=== PATIENT | female | born 1945 | race African-American/Black ===

== ENCOUNTER 2022-10-26 11:17 | Outpatient (REF) | payer OTHER, SELFPAY ==
[2022-10-26 14:07] LABS: Hematocrit 37.2 % (37.0-47.0); Hemoglobin 12.4 g/dl (12.0-16.0); Mean Corpuscular HGB Conc 33.3 g/dl (31.0-35.0); Mean Platelet Volume 10.3 fL (9.4-12.3); Platelet Count 262 X10*3/uL (160-400); Red Blood Count 4.43 X10*6/uL (4.20-5.50); Red Cell Distribution Width 14.6 % (11.0-16.0); White Blood Count 4.1 X10*3/uL (4.8-10.8)
[2022-10-26 14:37] LABS: Alanine Aminotransferase 19 U/L (0-31); Albumin Level 4.3 g/dL (3.5-5.0); Alkaline Phosphatase 107 U/L (39-117); Anion Gap 12 (12-20); Aspartate Amino Transferase 21 U/L (5-31); Bilirubin Total 0.4 mg/dL (0.0-1.0); Blood Urea Nitrogen 14 mg/dL (9-16); Calcium 9.7 mg/dL (8.4-10.2); Carbon Dioxide 29 mmol/L (22-29); Chloride 106 mmol/L (96-108); Cholesterol 206 mg/dL; Estimated Glomerular Filt Rate 52; Glucose Fasting 94 mg/dL (60-99); HDL Cholesterol 47 mg/dL; LDL Cholesterol Calculated 141 mg/dl; Potassium 4.4 mmol/L (3.3-5.1); Sodium 143 mmol/L (135-145); Total Protein 7.6 g/dL (6.5-8.0); Triglycerides 91 mg/dL
[2022-10-26 14:53] LABS: TSH reflex Free T4 0.76 uIU/mL (0.32-4.0)
== END 2022-10-26 11:18 | disposition home or self-care (01) ==
LOC: HO.WFDLDS 11:17
PROVIDERS: Visit Provider Nurse Practitioner Family
DX: Z00.00 Encounter for general adult medical examination without abnormal findings (principal); Z71.89 Other specified counseling
CPT/HCPCS: 36415; 80053; 80061; 84443; 85027

== ENCOUNTER → 2022-12-22 10:14 | Outpatient (BNVA) | payer OTHER, SELFPAY | PROVIDERS: PCP Nurse Practitioner Family; Visit Provider Physician Assistant | DX: Z12.11 Encounter for screening for malignant neoplasm of colon (principal) | CPT/HCPCS: 99202 ==

== ENCOUNTER 2023-02-25 11:07 | Day surgery (SDC) | payer OTHER, SELFPAY ==
[2023-02-23 16:02] VITALS: BMI 25.4
[2023-02-25] MEDS: Lactated Ringers 1,000 ML 100 ML IVCONT (11:40)
--- NOTE | 2023-02-25 11:46 | MHC.SHP ---
Pre-Procedural Eval Section A Date of Service: 02/25/23 Section B Chief Complaint: screening Relevant Family History (Specify if Yes): No Relevant Social History: None Present Medications: see Short Stay Collaborative assessment Medical History: Significant History (Cataract) History of Previous Operations: No relevant previous surgery Allergies: Allergies Allergy/AdvReac Type Severity Reaction Status Date / Time No Known Allergies Allergy Verified 12/22/22 10:18 Review of Systems Sugical H&P ROS: Negative: Constitution, Cardiovascular, Respiratory, Neurological, Psychiatric, Hem-Onc, Allergic/Immunologic, Gastrointestinal, Genitourinary, Musculoskeletal, Integumentary, Endocrine and Eyes/Ears/Nose/Throat Exam Surgical H&P Exam: Normal: HEENT, Normal: Heart, Normal: Lungs, Normal: Extremities, Normal: Abdomen, Normal: Skin and Normal: Neurological Plan Diagnosis/Plan: Unchanged I have reviewed the history and physical and performed a pertinent physical examination on my patient. No changes have occurred unless specified. Time Spent With Patient Time: Total time managing care of this patient today ____ minutes.
--- NOTE | 2023-02-25 11:56 | HO.ANESPROP2 ---
[facility] Active Problems Active Problems: All Active Problems (Updated 12/22/22 @ 11:57 by Yin Black PA-C) Postmenopausal (Acute) Osteoporosis screening (Acute) Colon cancer screening (Acute) Physical exam, annual (Acute) Laboratory tests ordered as part of a complete physical exam (CPE) (Acute) Past Medical History Medical History (Updated 12/22/22 @ 11:57 by Yin Black PA-C) Cataract Family History Family history of problems with anesthesia: No Surgical History History of Problems with Anesthesia: No Social History Social History (Updated 12/22/22 @ 10:47 by Yin Black PA-C) Household Members: Family Housing: House Patient Tobacco Use Status: Never used Tobacco e-Cigarette/Vaping Use: Never Used Use of substances other than those prescribed or required for medical reasons: No Are you DNR?: No Advance Directives: No Advance Directives Information Provided: Yes Meds Allergies Allergy/AdvReac Type Severity Reaction Status Date / Time No Known Allergies Allergy Verified 12/22/22 10:18 Active Medications: Current Medications Lactated Ringer's (Lr) 1,000 mls @ 100 mls/hr IVCONT .Q10H MONYT Last Admin: 02/25/23 11:40 Dose: 100 mls/hr Exam Exam Date and Time: February 25, 2023 1156 Height,Weight and Vital Signs: Height 5 ft 4 in Weight 67.132 kg Airway Mallampati Class: II TM Dist: >3cm Neck ROM: Full Assessment and Plan Assessment Anesthesia Assessment: Anesthesia Plan Discussed and Chart Reviewed Final Anesthetic Review Family History of Problems with Anesthesia: No History of Problems with Anesthesia: No NPO: Yes ASA Class: I Final Preanesthetic Review: No Changes in Pt Med Stat, Meds/Allgs Chart Reviewed, Consent Obtained/Reviewed and Anes Risks/Benef Reviewed Patient Risk: Low Procedure Risk: Low Anesthetic Plan Anesthetic Plan: MAC: Disposition: Standard PACU
--- NOTE | 2023-02-25 12:07 | W.PM.OPN ---
Operative Note Operative Note Date of Service: 02/25/23 Narrative: Operative Information Procedure Description: Colonoscopy Indication: screening Anesthesia: MAC COLONOSCOPY Instrument: Olympus variable stiffness ADULT scope 190L Colonoscopy Monitoring: Vital signs and clinical assessment, continuous EKG monitoring, Pulse oximetry, Carbon Dioxide monitoring and blood pressure monitoring were done throughout the procedure. Colon withdrawal time was 14 minutes. Procedure: The patient was placed in the left lateral decubitis position and pre-procedure medications were administered. After a digital rectal examination of the ano-rectum, the video colonoscope was inserted into the rectum and advanced through the colon to the cecum/TI. The colonoscope was slowly withdrawn in a retrograde panoramic fashion and the colon mucosa was carefully examined including a retroflexed view of the rectum. Findings and interventions are described below. Procedure Difficulty: moderate, redundant colon with lopping Findings: Terminal Ileum-not intubated Cecum: 4-6 mm sessile polyp removed with cold snare Ascending Colon: normal Transverse Colon -normal Descending Colon:normal Sigmoid Colon: normal Rectum: Retroflexion with small internal hemorrhoids, grade I Anorectum - normal Colon preparation: Blanca Bowel Preparation Scale Right colon; 2 Transverse colon: 2 Left colon; 3 (0 = Unprepared colon segment with mucosa not seen due to solid stool that cannot be cleared. 1 = Portion of mucosa of the colon segment seen, but other areas of the colon segment not well seen due to staining, residual stool and/or opaque liquid. 2 = Minor amount of residual staining, small fragments of stool and/or opaque liquid, but mucosa of colon segment seen well. 3 = Entire mucosa of colon segment seen well with no residual staining, small fragments of stool or opaque liquid) Impression and Post Procedure Diagnosis: polyp internal hemorrhoids Plan: High fiber diet leaflet Avoid straining at stool, epsom salts and sitz bath, anusol supps or cream Can consider Repeat Colonoscopy in 5-7 years if health allows and the polyp is adenomatous otherwise this would be her last screening colonoscopy Above findings were reviewed with the patient and relevant handouts were provided if indicated.
[2023-02-25 12:46] VITALS: BP 115/52; PULSE 86; RESP 20; TEMP 36.3; O2SAT 98
[2023-02-25 13:01] VITALS: BP 120/60; PULSE 78; RESP 18; O2SAT 98
[2023-02-25 13:16] VITALS: BP 126/64; PULSE 91; RESP 18; TEMP 36.3; O2SAT 98
== END 2023-02-25 13:51 | disposition home or self-care (01) ==
PROVIDERS: PCP Hospitalist; Visit Provider Internal Medicine Gastroenterology
PROC: 0DJD8ZZ Inspection of Lower Intestinal Tract, Via Natural or Artificial Opening Endoscopic (ICD-10-PCS; CPT 45378; principal; 2023-02-25 12:30)
DX: Z12.11 Encounter for screening for malignant neoplasm of colon (principal); K63.5 Polyp of colon; K64.0 First degree hemorrhoids
CPT/HCPCS: G0121; 88305

== ENCOUNTER → 2023-02-25 11:07 | Outpatient (BNV) | payer OTHER, SELFPAY | PROVIDERS: PCP Hospitalist; Visit Provider Internal Medicine Gastroenterology | DX: Z12.11 Encounter for screening for malignant neoplasm of colon (principal); K63.5 Polyp of colon | CPT/HCPCS: 45385 ==

== ENCOUNTER 2023-03-10 13:22 | Outpatient (AMB) | payer OTHER, SELFPAY ==
--- NOTE | 2023-03-10 13:31 | MHC.OFFVIS ---
Intake Vital Signs 03/10/23 13:34 Height 5 ft 4 in Weight 140 lb BMI 24.0 BP 146/76 H Blood Pressure Location Lt brachial Position Sitting Pulse 82 Intake Visit Reasons: S/P Filion screening; Dr. Saini Intake Note: Patient follow up for Colonoscopy results. Patient denies any GI issues. Principal Associate Required: No Accompanied by: Self / Same As Patient Allergies No Known Allergies Allergy (Verified 03/10/23 13:32) HPI HPI Comments History of Present Illness Details A 77 y/o female f/u after colonoscopy with Dr. Saini. She tolerated well-No GI or general complaints- No N/V/ D PFSH Medical History (Updated 03/10/23 @ 13:46 by Yin Black PA-C) Cataract Surgical History Hx of colonoscopy Social History Household Members: Family Housing: House Patient Tobacco Use Status: Never used Tobacco e-Cigarette/Vaping Use: Never Used Review of Systems Const All systems reviewed & are unremarkable except as noted in HPI and below Physical Exam Vital Signs: Last Vital Signs Pulse 82 03/10/23 13:34 BP 146/76 H 03/10/23 13:34 BMI result Body Mass Index 24.0 Const General: cooperative, healthy appearing and comfortable Orientation/consciousness: patient oriented x3 Limitations: no limitations Neuro General: patient oriented x3 Extrem General: Yes full ROM Psych Appearance: grossly normal and well kempt Mental Status: mental status grossly normal Speech and movement: Normal speech and movement present and Clear speech present Affect: normal affect Attitude: cooperative Thought process: Normal thought process present Thought content: Normal thought content present Results Reviewed Results Reviewed: mpression and Post Procedure Diagnosis: polyp internal hemorrhoids Plan: High fiber diet leaflet Avoid straining at stool, epsom salts and sitz bath, anusol supps or cream Can consider Repeat Colonoscopy in 5-7 years if health allows and the polyp is adenomatous otherwise this would be her last screening colonoscopy Above findings were reviewed with the patient and relevant handouts were provided if indicated. Name:?Charlotte Shepherd Age/Sex: 77/F Attending: Leobardo Saini MD : 1945 Submitted by: Leobardo Saini MD Copies to: Isidro Mercer MD MR #: [id number] ? Status: [facility] [place] Collected: 02/25/23 Location: [facility] Received: 02/25/23 Diagnosis Colon, cecum, polyp, biopsy:? Colonic mucosa with a prominent lymphoid aggregate; negative for a hyperplastic or neoplastic process. Assessment & Plan Assessment & Plan (1) Hemorrhoids: Code(s): K64.9 - Unspecified hemorrhoids Plan High fiber diet leaflet Avoid straining at stool, epsom salts and sitz bath, anusol supps or cream Can consider Repeat Colonoscopy in 5-7 years if health allows and the polyp is adenomatous otherwise this would be her last screening colonoscopy Medications: New methylcellulose (laxative) (Citrucel Sugar Free oral powder) 2 grams PO DAILY PRN 479 grams 2RF constipation Patient Instructions: High fiber diet - citrucel Avoid straining at stool, epsom salts and sitz bath, anusol supps or cream Can consider Repeat Colonoscopy in 5-7 years if health allows and the polyp is adenomatous otherwise this would be her last screening colonoscopy Reviewed pathology- no adenoma Coding Level of Care Code Est Pt Level 3 (64569) Diagnoses Hemorrhoids K64.9 Time Spent (min) 25
[2023-03-10 13:34] VITALS: BP 146/76; PULSE 82; BMI 24.0
== END 2023-03-10 15:02 | disposition home or self-care (01) ==
PROVIDERS: PCP Hospitalist; Visit Provider Physician Assistant
DX: K64.9 Unspecified hemorrhoids (principal)
CPT/HCPCS: 99213

== ENCOUNTER → 2023-03-10 13:22 | Outpatient (BNVA) | payer OTHER, SELFPAY | PROVIDERS: PCP Hospitalist; Visit Provider Physician Assistant | DX: K64.9 Unspecified hemorrhoids (principal) | CPT/HCPCS: 99212 ==

== ENCOUNTER 2023-03-19 12:38 | Outpatient (AMB) | payer OTHER, SELFPAY ==
[2023-03-19 12:46] VITALS: BP 130/80; PULSE 78; O2SAT 98; BMI 24.9
--- NOTE | 2023-03-19 12:46 | MHC.PC.OV ---
Vital Signs 03/19/23 12:46 Height 5 ft 4 in Weight 145 lb 5 oz BMI 24.9 BP 130/80 Blood Pressure Location Lt brachial Position Sitting Pulse 78 Pulse Source Pulse Oximeter Pulse Oximetry (%) 98 Intake Visit Reasons: health maintenance Intake Note: pt is here for f/u health maintenance Accompanied by: Self / Same As Patient Allergies No Known Allergies Allergy (Verified 03/19/23 13:02) Tobacco use date assessed: 10/26/22 Fall risk assessment: No Falls in past year Last assessed Fall Risk: 03/19/23 Dental Screening Dental Screen Date: 03/19/23 Did you have a dental visit in the last 12 months?: Yes Did you have a dental problem in the last 6 months where you did not have access to dental care?: No Was dental information given to patient?: Patient has dentist HPI HPI Comments History of Present Illness Details 77-year-old female presents for health maintenance. She had colonoscopy done on 02/25/2023. Polyp and internal hemorrhoids were found. Per GI, can consider Repeat Colonoscopy in 5-7 years if health allows and the polyp is adenomatous otherwise this would be her last screening colonoscopy. No acute symptoms. 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 Minor Joy, Alla Armenta, Bran Kaplan and colleagues, with an educational jose from [employer]. Review of Systems Const Details: Const Denies chills, Denies fatigue, Denies fever(s), Denies headache(s) and Denies weakness ENT Denies dizziness and Denies headache(s) Card Denies chest pain, Denies lightheadedness, Denies dyspnea and Denies other (Palpitations) Resp Denies cough, Denies dyspnea, Denies wheezing and Denies other ( shortness of breath) GI Denies abdominal pain, Denies melena, Denies hematochezia, Denies change in bowel habits, Denies dyspepsia and Denies nausea Denies hematuria and Denies dysuria Musc Denies abnormal gait, Denies myalgias, Denies arthralgias, Denies numbness and Denies tingling Skin/Breast Denies rash, Denies unusual bruising and Denies wounds Neuro Denies abnormal gait, Denies dizziness, Denies headache(s), Denies memory loss, Denies numbness, Denies Sensory deficit (Neuro), Denies tingling and Denies weakness Psych Denies anxiety and Denies depression Endo Denies fatigue Aller/Immun Denies wheezing Physical exam (Primary Care) Vital Signs: Last Vital Signs Pulse 78 03/19/23 12:46 BP 130/80 03/19/23 12:46 Pulse Ox 98 03/19/23 12:46 BMI result Body Mass Index 24.9 Tobacco/Smoking Status: Tobacco use Status Tobacco use date assessed 10/26/22 03/19/23 12:48 Patient Tobacco Use Status Never used Tobacco 03/19/23 12:48 e-Cigarette/Vaping Use Never Used 03/19/23 12:48 Thrive Assessment: Date of Thrive Assessment Date Thrive assessed 10/26/22 03/19/23 12:48 Const Other: General: no acute distress and well developed Nutritional Appearance: well nourished Orientation/consciousness: patient oriented x3 HENMT Head: Yes normocephalic and Yes atraumatic Eyes General: appearance normal, both eyes and all related structures Pupils: Equal, round and reactive pupils present EOM: EOMs intact bilaterally Resp Effort & Inspection: normal respiratory effort Auscultation: clear to auscultation bilaterally Cardio Rate: regular rate Rhythm: regular rhythm Heart sounds: S1 normal heart sound present, S2 normal heart sound present, no gallops, no murmurs and no rubs GI Palpation (GI): No Abdominal aortic bruit present, Soft to palpation, nontender, No hepatosplenomegaly present and No Rebound tenderness present Auscultation: normal bowel sounds General: Yes no CVA tenderness Back/Spine/Pelvis Back: no CVA tenderness Cervical Spine: cervical ROM normal and No Cervical spine tenderness Thoracic/Lumbar Spine: thoraco-lumbar ROM normal, No pain with thoraco-lumbar ROM, No thoracic spinal tenderness and No lumbar spinal tenderness Extrem General: Yes normal to inspection, No edema and No calf tenderness Skin General: warm and dry. Normal skin color. Normal skin turgor Lesions: no lesions Rashes: no rashes Trauma: no lacerations or abrasions Wounds: no wounds Nails: normal Neuro General: patient oriented x3, gait normal and no focal neuro deficit Cranial nerves: Yes Equal, round and reactive pupils present Cognition (Neuro): normal cognition Gait exam (Neuro): Normal gait present Motor exam (neuro): 5/5 motor strength present throughout Sensory Exam: No Sensory deficit (Neuro) Psych Appearance: grossly normal Affect: normal affect Attitude: cooperative Thought process: Normal thought process present Assessment and Plan Assessment & Plan (1) Hypercholesteremia: Code(s): E78.00 - Pure hypercholesterolemia, unspecified Plan: Current blood work reviewed with the patient Total cholesterol and LDL were slightly elevated Advised to limit foods high in saturated fat and avoid foods high trans fat Routine exercise encouraged Follow-up with GI as needed Return with concerns or symptoms Advised to schedule her next physical for a year from today Verbalized understanding and agreed with treatment plan. Coding Level of Care Code Est Pt Level 3 (14453) Diagnoses Hypercholesteremia E78.00
== END 2023-03-19 13:30 | disposition home or self-care (01) ==
PROVIDERS: PCP Nurse Practitioner Family; Visit Provider Nurse Practitioner Family
DX: E78.00 Pure hypercholesterolemia, unspecified (principal)
CPT/HCPCS: 99213

== ENCOUNTER 2023-10-29 09:55 | Outpatient (AMB) | payer OTHER, SELFPAY ==
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
[2023-10-29 10:04] VITALS: BP 126/78; PULSE 77; RESP 14; TEMP 36.6; O2SAT 98; BMI 24.8
== END 2023-10-29 11:26 | disposition home or self-care (01) ==
PROVIDERS: PCP Nurse Practitioner Family; Visit Provider Nurse Practitioner Family
DX: Z00.00 Encounter for general adult medical examination without abnormal findings (principal); M79.652 Pain in left thigh; M81.8 Other osteoporosis without current pathological fracture
CPT/HCPCS: 99397

== ENCOUNTER 2023-10-29 10:45 | Outpatient (REF) | payer OTHER, SELFPAY ==
[2023-10-29 14:10] LABS: Appearance Urine Clear; Color Urine Yellow; Glucose Urine UA Negative (Negative); Leukocyte Esterase Urine Negative (Negative); Nitrite Urine Negative (Negative); PH 6.5 (5.0-9.0); Specific Gravity - Urine 1.015 (1.005-1.025); Urine Blood Negative (Negative); Urine Ketones Negative (Negative); Urine Protein Trace mg/dL (Neg-Trace)
[2023-10-29 14:15] LABS: Basophils Percent Auto 0.8 % (0-2); Eosinophils Percent Auto 0.4 % (0-4); Hematocrit 38.7 % (37.0-47.0); Hemoglobin 12.9 g/dl (12.0-16.0); Lymphocytes Absolute Auto 1.2 X10*3/uL (1.2-4.9); Lymphocytes Percent Auto 49.8 % (20-40); MANUAL DIFF FLAG SCAN; Mean Corpuscular HGB Conc 33.3 g/dl (31.0-35.0); Mean Corpuscular Hemoglobin 28.2 pg (27.0-33.0); Mean Corpuscular Volume 84.5 fL (80.0-98.0); Monocytes Absolute Auto 0.4 X10*3/uL (0.1-1.2); Monocytes Percent Auto 16.7 % (2-11); Neutrophils Absolute Auto 0.8 x10*3/uL (2.0-8.3); Neutrophils Percent Auto 32.3 % (45-73); Platelet Count 225 X10*3/uL (160-400); Red Blood Count 4.58 X10*6/uL (4.20-5.50); Red Cell Distribution Width 14.7 % (11.0-16.0); SCAN SMEAR FLAG 1
[2023-10-29 14:41] LABS: SLIDE REVIEW VERIFIED; White Blood Count 2.5 X10*3/uL (4.8-10.8)
[2023-10-29 14:57] LABS: Alanine Aminotransferase 24 U/L (0-31); Albumin Level 4.3 g/dL (3.5-5.0); Alkaline Phosphatase 78 U/L (39-117); Anion Gap 13 (12-20); Aspartate Amino Transferase 30 U/L (5-31); Bilirubin Total 0.3 mg/dL (0.0-1.0); Blood Urea Nitrogen 10 mg/dL (9-16); Calcium 9.3 mg/dL (8.4-10.2); Carbon Dioxide 26 mmol/L (22-29); Chloride 104 mmol/L (96-108); Cholesterol 204 mg/dL (<200); Estimated Glomerular Filt Rate 42; Glucose Fasting 96 mg/dL (60-99); HDL Cholesterol 48 mg/dL (>40); LDL Cholesterol Calculated 132 mg/dL (<100); Sodium 139 mmol/L (135-145); Total Protein 7.9 g/dL (6.5-8.0); Triglycerides 121 mg/dL (<150)
[2023-10-29 15:16] LABS: TSH reflex Free T4 0.53 uIU/mL (0.32-4.0)
== END 2023-10-29 10:46 | disposition home or self-care (01) ==
LOC: HO.WFDLDS 10:45
PROVIDERS: Visit Provider Nurse Practitioner Family
DX: Z00.00 Encounter for general adult medical examination without abnormal findings (principal); Z20.2 Contact with and (suspected) exposure to infections with a predominantly sexual mode of transmission
CPT/HCPCS: 36415; 80053; 80061; 81003; 84443; 85025

== ENCOUNTER 2023-11-12 17:23 | Outpatient (AMB) | payer OTHER, SELFPAY ==
--- NOTE | 2023-11-12 17:18 | A.OFFPC_ITS ---
Intake Visit Reasons: labs review Allergies No Known Allergies Allergy (Verified 11/12/23 17:19) Tobacco use date assessed: 10/29/23 Dental Screening Dental Screen Date: 10/29/23 HPI HPI Comments History of Present Illness Details 78-year-old female presents for teleheal th visit for review of recent blood work She admits to taking gabapentin as prescribed without adverse reactions She notes that she has an appointment to start physical therapy in 11/19/2023 She offers no complaints and denies acute symptoms at this [facility] Medical History Cataract Surgical History Hx of colonoscopy Social History Household Members: Family Housing: House Patient Tobacco Use Status: Never used Tobacco e-Cigarette/Vaping Use: Never Used service: No 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 Minor Joy, Alla Armenta, Bran Kaplan and colleagues, with an educational jose from [employer]. Review of Systems Const Details: Const Denies chills, Denies fatigue, Denies fever(s), Denies headache(s) and Denies weakness ENT Denies dizziness and Denies headache(s) Card Denies chest pain, Denies lightheadedness, Denies dyspnea and Denies other (Palpitations) Resp Denies cough, Denies dyspnea, Denies wheezing and Denies other ( shortness of breath) GI Denies abdominal pain, Denies melena, Denies hematochezia, Denies change in bowel habits, Denies dyspepsia and Denies nausea Denies hematuria and Denies dysuria Musc Denies abnormal gait, Denies myalgias, Denies arthralgias, Denies numbness and Denies tingling Skin/Breast Denies rash, Denies unusual bruising and Denies wounds Neuro Denies abnormal gait, Denies dizziness, Denies headache(s), Denies memory loss, Denies numbness, Denies Sensory deficit (Neuro), Denies tingling and Denies weakness Psych Denies anxiety, Denies depression, Denies memory loss Endo Denies cold intolerance, Denies fatigue, Denies heat intolerance, Denies polydipsia and Denies polyuria Aller/Immun Denies wheezing Physical exam (Primary Care) Tobacco/Smoking Status: Tobacco use Status Tobacco use date assessed 10/29/23 11/12/23 17:20 Patient Tobacco Use Status Never used Tobacco 11/12/23 17:20 e-Cigarette/Vaping Use Never Used 11/12/23 17:20 Thrive Assessment: Date of Thrive Assessment Date Thrive assessed 10/29/23 11/12/23 17:20 Const Other: Telehealth visit. No physical exam Telehealth Telehealth Location of provider rendering services: practice address Location of patient: address on file Patient Identification confirmed using: Name, : Yes Telehealth method: voice only Patient verbally consented to treatment: Yes Patient verbally consented to billing insurance company: Yes Patient informed of any privacy concerns related to visit: Yes Assessment and Plan Assessment & Plan (1) Hypercholesteremia: Code(s): E78.00 - Pure hypercholesterolemia, unspecified Plan: Recent lab results reviewed with the patient Total cholesterol LDL is slightly elevated, 204 and 132 respectively Advised to limit foods high in saturated fat and avoid foods high in trans fat Routine exercise encouraged Will recheck lipid panel level. Advised to fast for 10-12 hours, may drink water only, and get blood work done before next visit Follow-up in 3 months Return sooner with symptoms or concerns Verbalized understanding and agreed with treatment plan (2) Leukocytopenia, unspecified: Code(s): D72.819 - Decreased white blood cell count, unspecified Plan: Recent white count is low, 2.5; previous white count was slightly low, 4.1; equivocal Will repeat CBC before next visit Follow-up as planned Verbalized understanding and agreed with the plan (3) Chronic kidney disease: Code(s): N18.9 - Chronic kidney disease, unspecified Plan: Recent GFR is low, 42; BUN and creatinine are normal Low GFR is likely related to age Will continue to monitor kidney function and symptoms. Will check urine microalbumin/creatinine ratio Adequate hydration encouraged Follow-up in 3 months Verbalized understanding and agreed with treatment plan Orders: Orders Lipid Panel 3 Months E78.00 - Pure hypercholesterolemia, unspecified Complete Blood Count no Diff 3 Months D72.819 - Decreased white blood cell count, unspecified Basic Metabolic Panel 3 Months N18.9 - Chronic kidney disease, unspecified Microalbumin, Random (w Creat) 3 Months N18.9 - Chronic kidney disease, unspecified Coding Level of Care Code Tele Est Pt Level 2 (29568) Diagnoses Hypercholesteremia E78.00 Leukocytopenia, unspecified D72.819 Chronic kidney disease N18.9 Time Spent (min) 15
== END 2023-11-15 16:29 | disposition home or self-care (01) ==
LOC: HO.HMGFM 17:23
PROVIDERS: PCP Nurse Practitioner Family; Visit Provider Nurse Practitioner Family
DX: E78.00 Pure hypercholesterolemia, unspecified (principal); D72.819 Decreased white blood cell count, unspecified; N18.9 Chronic kidney disease, unspecified
CPT/HCPCS: 99212

== ENCOUNTER 2023-11-19 09:05 | Outpatient (REF) | payer OTHER, SELFPAY ==
--- NOTE | ~2023-11-19 | MM_ITS ---
EXAMINATION: BONE DENSITOMETRY CLINICAL INDICATION: Other osteoporosis without current pathological fracture. COMPARISON: This is the patient's baseline examination. TECHNIQUE: Using a Verafin DXA System (software version: 13.1) manufactured by [employer], dual-energy x-ray absorptiometry was performed of the lumbar spine and left hip. The images are of good technical quality. Summary results are attached. FINDINGS: LEFT FEMUR, NECK: BMD 0.703 g/cm2, Z-score -1.2, T-score -2.4, osteopenia. LEFT FEMUR, TOTAL: BMD 0.811 g/cm2, Z-score -0.6, T-score -1.6, osteopenia. AP SPINE L1-L3 (excluding L4): The data of L1-L4 has been changed to exclude the L4 vertebral body, because degenerative sclerosis at this level may cause overestimation of lumbar spine density. BMD 0.861 g/cm2, Z-score -1.5, T-score -2.6, osteoporosis. IDENTIFIED RISK FACTORS: Early menopause, secondary osteoporosis. HISTORY OF FRACTURE: None listed. MEDICATIONS: Calcium supplements or multivitamin, vitamin D. MM/XR DEXA axial skeleton IMPRESSION: 1. DIAGNOSIS: Osteoporosis based on the lowest T-score value of -2.6 in the lumbar spine applying World Health Organization criteria. 2. 10-YEAR FRACTURE RISK PREDICTION, FRAX: According to the guidelines, FRAX calculation should only be performed on patients in the osteopenia bone density category. Therefore, FRAX was not performed on this patient. 3. Treatment Recommendations: NOF guidelines recommend consideration for treatment in postmenopausal women and men age 50 and older presenting with the following: -A hip or vertebral (clinical or morphometric) fracture. -T-score less than or equal to -2.5 at the femoral neck or spine after appropriate evaluation to exclude secondary causes. -Low bone mass at the hip or spine and a 10-year fracture probability by FRAX of greater than or equal to 3% for hip fracture or greater than or equal to 20% for major osteoporotic fracture based on the [place] adapted WHO algorithm. 4. Other Recommendations: All treatment decisions require clinical judgment and consideration of individual patient factors, including patient preferences, comorbidities, previous drug use, risk factors not captured in the FRAX model (e.g. frailty, falls, vitamin D deficiency, increased bone turnover, interval significant decline in bone density) and possible under or overestimation of fracture risk by FRAX. Additional medical evaluation for secondary cause of low bone mineral density may be appropriate. FUTURE SCAN RECOMMENDATION: People with diagnosed cases of osteoporosis or at high risk for fracture should have regular bone mineral density tests. For patients eligible for Medicare, routine testing is allowed once every 2 years. The testing frequency can be increased to one year for patients who have rapidly progressing disease, those who are receiving or discontinuing medical therapy to restore bone mass, or have additional risk factors.
== END 2023-11-19 09:06 | disposition home or self-care (01) ==
LOC: HO.MAMMO 09:05
PROVIDERS: Visit Provider Nurse Practitioner Family
DX: Z13.820 Encounter for screening for osteoporosis (principal); M81.8 Other osteoporosis without current pathological fracture; Z78.0 Asymptomatic menopausal state
CPT/HCPCS: 77080

== ENCOUNTER 2024-02-18 11:02 | Outpatient (REF) | payer OTHER, SELFPAY ==
[2024-02-18 14:21] LABS: Hematocrit 37.3 % (37.0-47.0); Hemoglobin 12.4 g/dl (12.0-16.0); Mean Corpuscular HGB Conc 33.2 g/dl (31.0-35.0); Mean Corpuscular Hemoglobin 28.2 pg (27.0-33.0); Mean Platelet Volume 10.1 fL (9.4-12.3); Platelet Count 234 X10*3/uL (160-400); Red Blood Count 4.39 X10*6/uL (4.20-5.50); Red Cell Distribution Width 14.3 % (11.0-16.0); White Blood Count 4.3 X10*3/uL (4.8-10.8)
[2024-02-18 14:32] LABS: Anion Gap 13 (12-20); Blood Urea Nitrogen 17 mg/dL (9-16); Calcium 10.2 mg/dL (8.4-10.2); Carbon Dioxide 26 mmol/L (22-29); Chloride 106 mmol/L (96-108); Cholesterol 188 mg/dL (<200); Estimated Glomerular Filt Rate 45; Glucose Random 104 mg/dL (60-115); HDL Cholesterol 44 mg/dL (>40); LDL Cholesterol Calculated 129 mg/dL (<100); Potassium 4.3 mmol/L (3.3-5.1); Sodium 141 mmol/L (135-145); Triglycerides 79 mg/dL (<150)
[2024-02-18 14:38] LABS: Creatinine Urine 110.86 mg/dL; Microalbum/Creatinine Ratio Ur 8.1 ug/mg cr (<30)
== END 2024-02-18 11:03 | disposition home or self-care (01) ==
LOC: HO.WFDLDS 11:02
PROVIDERS: Visit Provider Nurse Practitioner Family
DX: N18.9 Chronic kidney disease, unspecified (principal); E78.00 Pure hypercholesterolemia, unspecified; D72.819 Decreased white blood cell count, unspecified
CPT/HCPCS: 36415; 80048; 80061; 82043; 82570; 85027

== ENCOUNTER 2024-02-25 11:00 | Outpatient (AMB) | payer OTHER, SELFPAY ==
[2024-02-25 11:12] VITALS: BP 140/74; PULSE 71; RESP 14; TEMP 36.5; O2SAT 99; BMI 24.8
--- NOTE | 2024-02-25 11:12 | MHC.PC.OV ---
Vital Signs 02/25/24 11:12 02/25/24 11:51 Height 5 ft 4 in Weight 144 lb 6 oz BMI 24.8 BP 140/74 H 120/68 Blood Pressure Location Rt brachial Rt brachial Position Sitting Sitting Respiration 14 Pulse 71 Pulse Source Pulse Oximeter Temp 97.7 F Temp Source Temporal Artery Scan Pulse Oximetry (%) 99 Oxygen Delivery Method Room Air Intake Visit Reasons: hypercholesterolemia, CKD, leukocytopenia Claims Manager Required: No Accompanied by: Self / Same As Patient Allergies No Known Allergies Allergy (Verified 02/25/24 11:18) Tobacco use date assessed: 10/29/23 Fall risk assessment: No Falls in past year Last assessed Fall Risk: 02/25/24 Dental Screening Dental Screen Date: 10/29/23 HPI HPI Comments History of Present Illness Details 78-year-old female presents for hypercholesterolemia, CKD, and leukopenia follow-up She reports occasional postnasal drip and requests a script for this No acute symptoms at this time PFSH Medical History Cataract Surgical History Hx of colonoscopy Social History Household Members: Family Housing: House Patient Tobacco Use Status: Never used Tobacco e-Cigarette/Vaping Use: Never Used service: No 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 Minor Joy, Alla Armenta, Bran Kaplan and colleagues, with an educational jose from [employer]. Review of Systems Const Details: Const Denies chills, Denies fatigue, Denies fever(s), Denies headache(s) and Denies weakness ENT Denies dizziness and Denies headache(s) Card Denies chest pain, Denies lightheadedness, Denies dyspnea and Denies other (Palpitations) Resp Denies cough, Denies dyspnea, Denies wheezing and Denies other ( shortness of breath) GI Denies abdominal pain, Denies melena, Denies hematochezia, Denies change in bowel habits, Denies dyspepsia and Denies nausea Denies hematuria and Denies dysuria Musc Denies abnormal gait, Denies myalgias, Denies arthralgias, Denies numbness and Denies tingling Skin/Breast Denies rash, Denies unusual bruising and Denies wounds Neuro Denies abnormal gait, Denies dizziness, Denies headache(s), Denies memory loss, Denies numbness, Denies Sensory deficit (Neuro), Denies tingling and Denies weakness Psych Denies anxiety, Denies depression, Denies memory loss Endo Denies cold intolerance, Denies fatigue, Denies heat intolerance, Denies polydipsia and Denies polyuria Aller/Immun Denies wheezing Physical exam (Primary Care) Vital Signs: Last Vital Signs Temp 97.7 F 02/25/24 11:12 Pulse 71 02/25/24 11:12 Resp 14 02/25/24 11:12 BP 140/74 H 02/25/24 11:12 Pulse Ox 99 02/25/24 11:12 Oxygen Delivery Method Room Air 02/25/24 11:12 BMI result Body Mass Index 24.8 Tobacco/Smoking Status: Tobacco use Status Tobacco use date assessed 10/29/23 02/25/24 11:20 Patient Tobacco Use Status Never used Tobacco 02/25/24 11:20 e-Cigarette/Vaping Use Never Used 02/25/24 11:20 Thrive Assessment: Date of Thrive Assessment Date Thrive assessed 10/29/23 02/25/24 11:20 Const Other: General: no acute distress and well developed Nutritional Appearance: well nourished Orientation/consciousness: patient oriented x3 HENWI Head: Yes normocephalic and Yes atraumatic Eyes General: appearance normal, both eyes and all related structures Pupils: Equal, round and reactive pupils present EOM: EOMs intact bilaterally Resp Effort & Inspection: normal respiratory effort Auscultation: clear to auscultation bilaterally Cardio Rate: regular rate Rhythm: regular rhythm Heart sounds: S1 normal heart sound present, S2 normal heart sound present, no gallops, no murmurs and no rubs GI Palpation (GI): No Abdominal aortic bruit present, Soft to palpation, nontender, No hepatosplenomegaly present and No Rebound tenderness present Auscultation: normal bowel sounds General: Yes no CVA tenderness Back/Spine/Pelvis Back: no CVA tenderness Cervical Spine: cervical ROM normal and No Cervical spine tenderness Thoracic/Lumbar Spine: thoraco-lumbar ROM normal, No pain with thoraco-lumbar ROM, No thoracic spinal tenderness and No lumbar spinal tenderness Extrem General: Yes normal to inspection, No edema and No calf tenderness Skin General: warm and dry. Normal skin color. Normal skin turgor Neuro General: patient oriented x3, gait normal and no focal neuro deficit Cranial nerves: Yes Equal, round and reactive pupils present Cognition (Neuro): normal cognition Gait exam (Neuro): Normal gait present Sensory Exam: No Sensory deficit (Neuro) Psych Appearance: grossly normal Affect: normal affect Attitude: cooperative Thought process: Normal thought process present Assessment and Plan Assessment & Plan (1) Hypercholesteremia: Code(s): E78.00 - Pure hypercholesterolemia, unspecified Plan: Recent triglycerides, total cholesterol LDL, and HDL levels are normal, 79, 188, 129, and 44 respectively Advised to limit foods high in saturated fat and avoid foods high in trans fat Routine exercise encouraged Will monitor lipid panel periodically Encouraged to schedule her next physical exam for 10/2024 Return sooner with symptoms or concerns Verbalized understanding and agreed with treatment plan (2) Leukocytopenia, unspecified: Code(s): D72.819 - Decreased white blood cell count, unspecified Plan: Recent WBC count is 4.3, significant improvement from previous level of 2.5; equivocal Will monitor routinely or based on symptoms Follow-up with symptoms or concerns Verbalized understanding and agreed with the plan (3) Chronic kidney disease: Code(s): N18.9 - Chronic kidney disease, unspecified Plan: Recent BUN and creatinine levels are unremarkable, urine microalbumin/creatinine ratio is normal, 8.1 GFR is low, 45, likely due to age Adequate hydration encouraged Will continue to monitor routinely or based on symptoms Follow-up with symptoms or concerns Verbalized understanding and agreed with the treatment plan (4) Osteoporosis: Code(s): M81.0 - Age-related osteoporosis without current pathological fracture Plan: Recent DEXA scan results on 11/19/2023 revealed osteoporosis based on the lowest T-score value of -2.6 in the lumbar spine Calcium carbonate-vitamin D3 600 mg-20 mcg daily ordered. Advised to take as prescribed. Instructed on the risks, benefits, and potential adverse reactions of the medications Referred to physical therapy for weight-bearing exercises Follow-up with symptoms or concerns Verbalized understanding and agreed with the plan (5) Seasonal allergies: Code(s): J30.2 - Other seasonal allergic rhinitis Plan: Occasional postnasal drip Zyrtec 10 mg daily ordered. Advised to take as prescribed. Instructed on the risks, benefits, and potential adverse reactions of the medication Follow-up with symptoms or concerns Verbalized understanding and agreed with treatment plan Orders: Orders PT Evaluation and Treatment Today M81.0 - Age-related osteoporosis without current pathological fracture Medications: New calcium carbonate-vitamin D3 600 mg-20 mcg (800 unit) 1 tab PO DAILY 90 days 90 tabs 4RF cetirizine (Zyrtec) 10 mg PO DAILY 30 days 30 tabs 3RF Coding Level of Care Code Est Pt Level 4 (96545) Complex EM visit Add On G2211 Diagnoses Hypercholesteremia E78.00 Leukocytopenia, unspecified D72.819 Chronic kidney disease N18.9 Osteoporosis M81.0 Seasonal allergies J30.2
[2024-02-25 11:51] VITALS: BP 120/68
== END 2024-02-25 12:02 | disposition home or self-care (01) ==
PROVIDERS: Visit Provider Nurse Practitioner Family
DX: E78.00 Pure hypercholesterolemia, unspecified (principal); D72.819 Decreased white blood cell count, unspecified; N18.9 Chronic kidney disease, unspecified; M81.0 Age-related osteoporosis without current pathological fracture; J30.2 Other seasonal allergic rhinitis
CPT/HCPCS: 99214; G2211

== ENCOUNTER 2024-04-27 07:56 | Outpatient (AMB) | payer OTHER, SELFPAY ==
--- NOTE | 2024-04-27 08:03 | MHC.OFFVIS ---
Vital Signs 04/27/24 08:08 Height 5 ft 3.03 in Weight 145 lb 11.609 oz BMI 25.8 BP 110/72 Blood Pressure Location Rt brachial Position Sitting Pulse 81 Pulse Source Pulse Oximeter Intake Visit Reasons: Age-related osteoporosis-conf Intake Note: New patient referred by PCP for age-related Osteoporosis. Pricing Strategist Required: No Accompanied by: Self / Same As Patient Allergies No Known Allergies Allergy (Verified 04/27/24 08:09) Medication List - Last Reconciled 04/27/24 by Minor Hardin MD calcium carbonate-vitamin D3 600 mg-20 mcg (800 unit) 1 tab PO DAILY 90 days cetirizine (Zyrtec) 10 mg PO DAILY 30 days gabapentin 100 mg PO BEDTIME PRN 30 days inulin (Fiber Gummies) grams PO HPI Comments Details: 78 YO Female with is seen in consultation at the request of PCP for Osteoporosis. First diagnosed in just diagnosed . Received no treatment in the past No history of pathologic fracture or ONJ. Has several servings of dietary calcium per day in the form of cheese, broccoli , ice cream . Takes Calcium supplement 600 mg daily Takes 800 IU of Vitamin D daily. Denies ever using PPI, anticoagulant, antiepileptic or glucocorticoid medication. 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 UTD on dental cleanings and sees dentist every 6 months. No planned upcoming dental work or extractions. DXA dated :11/19/2023 FINDINGS: LEFT FEMUR, NECK: BMD 0.703 g/cm2, Z-score -1.2, T-score -2.4, osteopenia. LEFT FEMUR, TOTAL: BMD 0.811 g/cm2, Z-score -0.6, T-score -1.6, osteopenia. AP SPINE L1-L3 (excluding L4): The data of L1-L4 has been changed to exclude the L4 vertebral body, because degenerative sclerosis at this level may cause overestimation of lumbar spine density. BMD 0.861 g/cm2, Z-score -1.5, T-score -2.6, osteoporosis. IDENTIFIED RISK FACTORS: Early menopause, secondary osteoporosis. HISTORY OF FRACTURE: None listed. MEDICATIONS: Calcium supplements or multivitamin, vitamin D. MM/XR DEXA axial skeleton IMPRESSION: 1. DIAGNOSIS: Osteoporosis based on the lowest T-score value of -2.6 in the lumbar spine applying World Health Organization criteria. 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 Plan is to complete the secondary workup by checking 25 hydroxy vitamin-D, SPEP, urine immunofixation, 24 hour urine for calcium and creatinine, phosphorus level. Will ensure 1200 mg of calcium and 2000 units of vitamin D3. Assuming secondary workup is negative could consider use of oral bisphosphonate or non pharmacologic treatment with calcium, vitamin-D and weight-bearing exercise Orders: Orders Vitamin D 25-OH Total Today M81.0 - Age-related osteoporosis without current pathological fracture Protein Electrophoresis, Serum Today M81.0 - Age-related osteoporosis without current pathological fracture Creatinine, 24 Hr Group Today M81.0 - Age-related osteoporosis without current pathological fracture Phosphorus Today M81.0 - Age-related osteoporosis without current pathological fracture Calcium, 24 Hr Ur Today M81.0 - Age-related osteoporosis without current pathological fracture Immunofixation, Random Urine Today M81.0 - Age-related osteoporosis without current pathological fracture Coding Level of Care Code New Pt Level 4 (03145) Diagnoses Osteoporosis M81.0
[2024-04-27 08:08] VITALS: BP 110/72; PULSE 81; BMI 25.8
== END 2024-04-27 08:48 | disposition home or self-care (01) ==
PROVIDERS: Visit Provider Internal Medicine Endocrinology, Diabetes & Metabolism
DX: M81.0 Age-related osteoporosis without current pathological fracture (principal)
CPT/HCPCS: 99204

== ENCOUNTER → 2024-04-27 07:56 | Outpatient (BNVA) | payer OTHER, SELFPAY | PROVIDERS: Visit Provider Internal Medicine Endocrinology, Diabetes & Metabolism | DX: M81.0 Age-related osteoporosis without current pathological fracture (principal) | CPT/HCPCS: 99202 ==

== ENCOUNTER 2024-05-10 12:51 | Outpatient (REF) | payer OTHER, SELFPAY ==
[2024-05-10 14:54] LABS: Vitamin D 25-OH Total 62.7 ng/mL (>30)
[2024-05-12 12:08] LABS: Prot Elec - Albumin 4.2 g/dL (3.8-4.8); Prot Elec - Alpha1 0.3 g/dL (0.2-0.3); Prot Elec - Alpha2 0.7 g/dL (0.5-0.9); Prot Elec - Beta 1 0.5 g/dL (0.4-0.6); Prot Elec - Beta 2 0.5 g/dL (0.2-0.5); Prot Elec - Gamma 1.2 g/dL (0.8-1.7); Prot Elec - Total Protein 7.3 g/dL (6.1-8.1)
== END 2024-05-10 12:52 | disposition home or self-care (01) ==
LOC: HO.LAB 12:51
PROVIDERS: PCP Nurse Practitioner Family; Visit Provider Internal Medicine Endocrinology, Diabetes & Metabolism
DX: M81.0 Age-related osteoporosis without current pathological fracture (principal)
CPT/HCPCS: 36415; 82306; 84100; 84165

== ENCOUNTER 2024-05-12 10:39 | Outpatient (REF) | payer OTHER, SELFPAY ==
[2024-05-12 12:45] LABS: Creatinine, mg/dL 53.16
[2024-05-12 13:02] LABS: Creatinine, 24Hr Urine 0.7 G/Day (1.0-2.0); Total Volume 24 Hour Urine 1350 mL
[2024-05-13 17:23] LABS: Calcium, 24 Hr Urine 27 mg/24 h; Calcium/Creatinine Ratio 35 mg/g creat (30-275); Creatinine 24Hr Urine 0.77 g/24 h (0.50-2.15)
== END 2024-05-12 10:40 | disposition home or self-care (01) ==
LOC: HO.LNP 10:39
PROVIDERS: Visit Provider Internal Medicine Endocrinology, Diabetes & Metabolism
DX: M81.0 Age-related osteoporosis without current pathological fracture (principal)
CPT/HCPCS: 82340; 82570; 86335

== ENCOUNTER 2024-08-23 14:54 | Outpatient (AMB) | payer MEDICARE, SELFPAY ==
--- NOTE | 2024-08-23 14:59 | MHC.OFFVIS ---
Vital Signs 08/23/24 15:02 Height 5 ft 3.03 in Weight 142 lb 13.753 oz BMI 25.3 BP 124/64 Blood Pressure Location Lt brachial Position Sitting Pulse 80 Pulse Source Pulse Oximeter Intake Visit Reasons: Osteoporosis Intake Note: Patient present today for Osteoporosis follow up. Piano Tuner Required: No Accompanied by: Self / Same As Patient Allergies No Known Allergies Allergy (Verified 08/23/24 15:04) HPI Comments Details: 78 YO Female with is seen in consultation at the request of PCP for Osteoporosis. First diagnosed in just diagnosed . Received no treatment in the past No history of pathologic fracture or ONJ. Has several servings of dietary calcium per day in the form of cheese, broccoli , ice cream . Takes Calcium supplement 600 mg daily Takes 800 IU of Vitamin D daily. Denies ever using PPI, anticoagulant, antiepileptic or glucocorticoid medication. 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 UTD on dental cleanings and sees dentist every 6 months. No planned upcoming dental work or extractions. DXA dated :11/19/2023 FINDINGS: LEFT FEMUR, NECK: BMD 0.703 g/cm2, Z-score -1.2, T-score -2.4, osteopenia. LEFT FEMUR, TOTAL: BMD 0.811 g/cm2, Z-score -0.6, T-score -1.6, osteopenia. AP SPINE L1-L3 (excluding L4): The data of L1-L4 has been changed to exclude the L4 vertebral body, because degenerative sclerosis at this level may cause overestimation of lumbar spine density. BMD 0.861 g/cm2, Z-score -1.5, T-score -2.6, osteoporosis. IDENTIFIED RISK FACTORS: Early menopause, secondary osteoporosis. HISTORY OF FRACTURE: None listed. MEDICATIONS: Calcium supplements or multivitamin, vitamin D. MM/XR DEXA axial skeleton IMPRESSION: 1. DIAGNOSIS: Osteoporosis based on the lowest T-score value of -2.6 in the lumbar spine applying World Health Organization criteria. 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 Plan is to increase the calcium supplement to Viactiv 650 mg and vitamin D3 500 IU BID . Will recheck 24 hour urine for calcium and creatinine in about 6 weeks' time. Would hold off on giving pharmacologic treatment until bone density is reassessed when calcium replete Orders: Orders Calcium, 24 Hr Ur 3 Months M81.0 - Age-related osteoporosis without current pathological fracture Creatinine, 24 Hr Group 3 Months M81.0 - Age-related osteoporosis without current pathological fracture Medications: Discontinued calcium carbonate-vitamin D3 600 mg-20 mcg (800 unit) Discontinued Reason: Doctor's Order 1 tab PO DAILY 90 days 90 tabs 4RF Coding Level of Care Code Est Pt Level 3 (71366) Diagnoses Osteoporosis M81.0
[2024-08-23 15:02] VITALS: BP 124/64; PULSE 80; BMI 25.3
== END 2024-08-23 15:28 | disposition home or self-care (01) ==
PROVIDERS: PCP Nurse Practitioner Family; Visit Provider Internal Medicine Endocrinology, Diabetes & Metabolism
DX: M81.0 Age-related osteoporosis without current pathological fracture (principal)
CPT/HCPCS: 99213

== ENCOUNTER → 2024-08-23 14:54 | Outpatient (BNVA) | payer OTHER, SELFPAY | PROVIDERS: PCP Nurse Practitioner Family; Visit Provider Internal Medicine Endocrinology, Diabetes & Metabolism | DX: M81.0 Age-related osteoporosis without current pathological fracture (principal) | CPT/HCPCS: 99212 ==

== ENCOUNTER 2024-11-09 08:18 | Outpatient (AMB) | payer MEDICARE, SELFPAY ==
--- NOTE | 2024-11-09 08:20 | A.OFFPC_ITS ---
Vital Signs 11/09/24 08:25 Height 5 ft 3.03 in Weight 155 lb 4 oz BMI 27.5 BP 136/74 Blood Pressure Location Rt brachial Position Sitting Respiration 16 Pulse 86 Pulse Source Pulse Oximeter Temp 97.6 F Temp Source Oral Pulse Oximetry (%) 100 Oxygen Delivery Method Room Air Intake Visit Reasons: CPE Intake Note: patient here for CPE Plate Roller Required: No Is last menstrual period known: No Post menopausal: No Patient : No Allergies No Known Allergies Allergy (Verified 11/09/24 08:33) Medication List - Last Reconciled 11/09/24 by Vannessa Tao CNP No Known Home Meds Tobacco use date assessed: 11/09/24 Fall risk assessment: No Falls in past year Last assessed Fall Risk: 11/09/24 Dental Screening Dental Screen Date: 11/09/24 Did you have a dental visit in the last 12 months?: Yes Did you have a dental problem in the last 6 months where you did not have access to dental care?: No Was dental information given to patient?: Patient has dentist HPI HPI Comments History of Present Illness Details 79-year-old female presents for an exten ded physical exam. Acute issue(s) - None Past Medical History - Hypercholesterolemia, leukocytopenia, CKD, osteoporosis, cataract, hemorrhoids Social History - Nonsmoker. Does not vape. Does not dri nk alcohol. Denies recreational drug use - Has been making healthy dietary choice s. Exercises routinely. Generally sleep well Health maintenance - [facility] She will sign a release for PCP to obtain her ophthalmology record. - Last dental visit was last month. - She has never been vaccinated for get tetanus; refused Tdap vaccine today - Has not been vaccinated for the flu ; declines vaccination - She has never been been vaccinated for shingles or pneumonia vaccine; encouraged to get vaccinated for both at the local pharmacy - Last pap smear test was several years ago: normal. She no longer performs Pap smear test - Last mammogram was several years ago: normal. Mammogram ordered - Last colonoscopy was in 02/25/2023: andra ign polyps. Repeat colonoscopy recommended in 5-7 years - Last dexa scan was in 11/19/2023: Osteo porosis. 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 1. Little interest or pleasure in doing things: not at all 2. Feeling down, depressed, or hopeless: not at all 3. Trouble falling or staying asleep, or sleeping too much: several days 4. Feeling tired or having little energy: several days 5. Poor appetite or overeating: not at all 6. Feeling bad about yourself - or that you are a failure or have let yourself or your family down: not at all 7. Trouble concentrating on things, such as reading the newspaper or watching television: not at all 8. Moving or speaking so slowly that other people could have noticed. Or the opposite - being so fidgety or restless that you have been moving around a lot more than usual: not at all 9. Thoughts that you would be better off or of hurting yourself in some way: not at all Total score: 2 Depression Screening Interpretation: Negative Depression Screening Done: Yes 27586 - PHQ-9 Billing: Yes Source: Developed by Drs. Minor Joy, Alla Armenta, Bran Kaplan and colleagues, with an educational jose from [employer]. Thrive Questionnaire Date Thrive assessed: 11/09/24 I am a: Patient What is your living situation today?: I have a steady place to live Within the past 12 months, did the food you bought not last and you didn't have the money to get more?: Never true Within the past 12 months, did you worry whether your food would run out before you got money to buy more?: Never true Do you have trouble paying for medicines?: No Do you have trouble getting transportation to medical appointments?: Yes Do you have trouble paying your heating and electricity bill?: No Do you have trouble taking care of your child, family member or friend?: No Do you have trouble with day-to-day activities such as bathing, preparing meals, shopping, managing finances, etc.?: No Are you currently unemployed and looking for a job?: Yes Are you interested in more education?: No Please select the resources that you would like help with: None Currently or been in a relationship where the following occur: No concerns reported THRIVE Score: 1 AUDIT C Alcohol Use Questionnaire (AUDIT-C) 1. How often do you have a drink containing alcohol?: Never 3. How often do you have six or more drinks on one occasion?: Never Total Score: 0 JACKIE-7 AMB Questionnaire JACKIE-7 Date JACKIE - 7 assessed: 11/09/24 Feeling nervous, anxious, or on edge: 0 = Not at all Not being able to stop or control worryin = Not at all Worrying too much about different things: 0 = Not at all Trouble relaxin = Not at all Being so restless that it is hard to sit still: 0 = Not at all Becoming easily annoyed or irritable: 0 = Not at all Feeling afraid as if something awful might happen: 0 = Not at all Total JACKIE-7 score (0-4 normal; 5-9 mild; 10-14 moderate; 15-21 severe): 0 Source: Developed by Drs. Minor Joy, Alla Armenta, Bran Kaplan and colleagues, with an educational jose from [employer]. JACKIE-7 Assessment Billing JACKIE-7 Assessment Tool: JACKIE-7 Assessment 76271 Review of Systems Const Details: Denies chills, Denies fatigue, Denies fever(s), Denies headache(s) and Denies weakness HEENT Denies change in vision, Denies dizziness, Denies headache(s), Denies hearing loss, Denies nasal congestion, Denies sinus pain, Denies sinus pressure and Denies sore throat Card Denies chest pain, Denies lightheadedness, Denies dyspnea and Denies other (palpitations) Resp Denies cough, Denies dyspnea and Denies wheezing GI Denies abdominal pain, Denies melena, Denies hematochezia, Denies change in bowel habits, Denies dyspepsia and Denies nausea Denies hematuria and Denies dysuria Musc Denies abnormal gait, Denies myalgias, Denies arthralgias, Denies numbness and Denies tingling Skin/Breast Denies rash, Denies unusual bruising and Denies wounds Neuro Denies abnormal gait, Denies dizziness, Denies headache(s), Denies memory loss, Denies numbness, Denies Sensory deficit (Neuro), Denies tingling and Denies weakness Psych Denies anxiety, Denies depression and Denies memory loss Endo Denies cold intolerance, Denies fatigue, Denies heat intolerance, Denies polydipsia and Denies polyuria Dc/Lymph Denies easy bleeding and Denies easy bruising Aller/Immun Denies wheezing Physical exam (Primary Care) Tobacco/Smoking Status: Tobacco use Status Tobacco use date assessed 10/29/23 11/09/24 08:23 Patient Tobacco Use Status Never used Tobacco 11/09/24 08:23 e-Cigarette/Vaping Use Never Used 11/09/24 08:23 Depression Screening Interpretation: Negative Thrive Assessment: Date of Thrive Assessment Date Thrive assessed 10/29/23 11/09/24 08:23 Currently or been in a relationship where the following occur: No concerns reported Const Other: General: no acute distress, well developed, alert and awake Nutritional Appearance: well nourished Orientation/consciousness: patient oriented x3 HENMT Head: Yes normocephalic and Yes atraumatic Ears: hearing grossly normal bilaterally and TM's normal bilaterally General nose exam: Normal external nose present and Normal nares present Mouth: Normal oral and palatal mucosa present and moist mucous membranes Teeth and gingiva: dentition normal, some missing teeth Throat: Yes oropharynx normal Eyes Pupils: Equal, round and reactive pupils present and Pupil accommodation reflex normal EOM: EOMs intact bilaterally Neck Neck: Yes normal visual inspection, Yes no lymphadenopathy and Yes trachea midline Thyroid: Thyroid normal Carotids: no bruits Lymphatic: no lymphadenopathy noted Chest Chest palpation & inspection: normal inspection of the chest Resp Effort & Inspection: normal respiratory effort Auscultation: clear to auscultation bilaterally Cardio Rate: regular rate Rhythm: regular rhythm Heart sounds: S1 normal heart sound present, S2 normal heart sound present, no gallops, no murmurs and no rubs Bruits: no abdominal aortic bruits and no carotid bruits GI Palpation (GI): No Abdominal aortic bruit present, Soft to palpation, nontender, No hepatosplenomegaly present and No Rebound tenderness present Auscultation: normal bowel sounds General: Yes no CVA tenderness Back/Spine/Pelvis Back: no CVA tenderness Cervical Spine: cervical ROM normal and No Cervical spine tenderness Thoracic/Lumbar Spine: thoraco-lumbar ROM normal, No pain with thoraco-lumbar ROM, No thoracic spinal tenderness and No lumbar spinal tenderness Skin General: warm and dry. Normal skin color. Normal skin turgor Lesions: no lesions Rashes: no rashes Trauma: no lacerations or abrasions Wounds: no wounds Nails: normal Neuro General: patient oriented x3, gait normal and CN's II-XI intact bilaterally Cranial nerves: Yes Equal, round and reactive pupils present Cognition (Neuro): normal cognition Gait exam (Neuro): Normal gait present Motor exam (neuro): 5/5 motor strength present throughout Sensory Exam: No Sensory deficit (Neuro) Deep tendon reflexes (DTR's): Right patellar reflex intensity grade: 2+ and Left patellar reflex intensity grade: 2+ Extrem General: Yes normal to inspection, No edema and No calf tenderness Psych Appearance: grossly normal Affect: normal affect Attitude: cooperative Thought process: Normal thought process present Coding Level of Care Code Est Pt Prev Care >65y(60877) Diagnoses Physical exam, annual Z00.00 Laboratory tests ordered as part of a complete physical exam (CPE) Z00.00 Breast cancer screening by mammogram Z12.31 Vaccine counseling Z71.85 Additional Codes JACKEI-7 Assessment Billing - JACKIE-7 Assessment Tool: JACKIE-7 Assessment 26690 ([id number]) PHQ-9 - 89192 - PHQ-9 Billing: Yes ([id number]) Assessment & Plan Assessment & Plan (1) Physical exam, annual: Code(s): Z00.00 - Encounter for general adult medical examination without abnormal findings Category: Medical Plan: Normal physical exam of a 79-year-old female. No significant functional limitations noted. Healthy diet and routine exercise encouraged. Advised to perform lab work and follow-up for telehealth visit in 2-3 weeks for labs review. Return sooner with symptoms or concerns. Verbalized understanding and agreed with treatment plan. (2) Laboratory tests ordered as part of a complete physical exam (CPE): Code(s): Z00.00 - Encounter for general adult medical examination without abnormal findings Category: Medical Plan: Fasting labs ordered as part of a complete physical exam. Advised to fast for at least 10 hours before getting labs drawn. May drink water Verbalized understanding and agreed with treatment plan. (3) Breast cancer screening by mammogram: Code(s): Z12.31 - Encounter for screening mammogram for malignant neoplasm of breast Category: Medical Plan: Last mammogram was several years ago: normal. Mammogram ordered. (4) Vaccine counseling: Code(s): Z71.85 - Encounter for immunization safety counseling Category: Medical Plan: She has never been been vaccinated for shingles or pneumonia vaccine. Encouraged to get vaccinated for both vaccines at the local pharmacy. Verbalized understanding and agreed with the plan. Orders: Orders Complete Blood Count Auto Diff Today Z00.00 - Encounter for general adult medical examination without abnormal findings Lipid Panel Today Z00.00 - Encounter for general adult medical examination without abnormal findings Microalbumin, Random (w Creat) Today Z00.00 - Encounter for general adult medical examination without abnormal findings Vitamin D 25-OH Total Today Z00.00 - Encounter for general adult medical examination without abnormal findings MM screening mammo BI Today Z12.31 - Encounter for screening mammogram for malignant neoplasm of breast Comprehensive Craig. Panel Fast Today Z00.00 - Encounter for general adult medical examination without abnormal findings TSH reflex Free T4 Today Z00.00 - Encounter for general adult medical examination without abnormal findings UA CC w/rflx Micro + Cult Today Z00.00 - Encounter for general adult medical examination without abnormal findings
[2024-11-09 08:25] VITALS: BP 136/74; PULSE 86; RESP 16; TEMP 36.4; O2SAT 100; BMI 27.5
--- OUTSIDE RECORDS SUMMARY | 2024-11-09 08:38 | XMS_ITS | Clinical Summary ---
Author Organization [facility] Address [address] [place] [address] Care Team Providers Care Chemical Manager Name Role Phone Maeve Savage ERVIN Primary Care Provider [phone] Source Comments PLEASE NOTE, if this patient is a minor, it may be UNLAWFUL to discuss sensitive information that is contained in these records (such as FAMILY PLANNING, MENTAL HEALTH or SUBSTANCE ABUSE) with the minor patient's parent or other person without the patient's specific authorization.[facility] Allergies No known active allergies Medications OMEGA-3 FATTY ACIDS (FISH OIL ORAL) Take by mouth. Active FOLIC ACID/MV,FE,MIN (CENTRUM ORAL) Take by mouth. Active Active Problems Problem Noted Date Diagnosed Date Dyslipidemia 03/05/2016 Scoliosis concern 03/02/2016 Overview (03/05/2016): XR Spine( 03/03/16, [facility]): IMPRESSION: No lower thoracic or lumbar scoliosis.Chronic appearing compression deformities T7, T11 and L2. No acute fracture. Mild grade 1 anterolisthesis L4 on L5, likely degenerative. Degenerative joint disease lower lumbar spine. Additional degenerative changes +. Immunizations Immunization Administration Dates Next Due PPD 03/02/2016 Social History Tobacco Use Types Packs/Day Years Used Date Smoking Tobacco: Never Tobacco Cessation:Counseling Given: Yes Alcohol Use Standard Drinks/Week Comments Yes 0 (1 standard drink = 0.6 oz pur e alcohol) beer Social Connections Answer Date Recorded Social Connections and Isolation 0 04/03/2019 Financial Resource Strain Answer Date R ecorded Financial Resource Strain 0 2018 Stress Answer Date Recorded Stress 0 04/03/2019 Physical Activity Answer Date Recorded Physical Activity 0 04/03/2019 Food Insecurity Answer Date Recorded Food 0 04/03/2019 Transportation Needs Answer Date Record ed Transportation 0 04/03/2019 Housing Stability Answer Date Recorded Housing 0 04/03/2019 Safety and Environment Answer Date Brandon rded Safety 0 04/03/2019 Utilities Answer Date Recorded Utilities 0 04/03/2019 Employment Answer Date Recorded Employment 0 04/03/2019 Comments No Sex and Gender Information Value Date Recorded Sex Assigned at Not on file Legal Sex Female 5:59 AM PST Gender Identity Not on file Sexual Orientation Not on file Last Filed Vital Signs Vital Sign Reading Time Taken Comments Blood Pressure 122/70 03/02/2016 3:28 PM EDT Pulse 60 03/02/2016 3:28 PM EDT Temperature 36.2 ??C (97.2 ??F) 03/02/2016 3:28 PM ED T Respiratory Rate 18 03/02/2016 3:28 PM EDT Oxygen Saturation - - Inhaled Oxygen Concentration - - Weight 66.7 kg (147 lb) 03/02/2016 3:28 PM EDT Height 162.6 cm (5' 4 ) 03/02/2016 3:28 PM EDT Body Mass Index 25.23 03/02/2016 3:28 PM EDT Plan of Treatment Not on file Insurance [employer] [place] MEDICARE [place] Care Teams Chemical Manager Relationship Specialty Start Date End Date Maeve Savage FNP [address] [place] [address] PCP - General 10/11/18
== END 2024-11-09 08:50 | disposition home or self-care (01) ==
LOC: HO.HMCFM 08:18
PROVIDERS: PCP Nurse Practitioner Family; Visit Provider Nurse Practitioner Family
DX: Z00.00 Encounter for general adult medical examination without abnormal findings (principal); Z12.31 Encounter for screening mammogram for malignant neoplasm of breast; Z71.85 Encounter for immunization safety counseling

== ENCOUNTER 2024-11-09 08:57 | Outpatient (REF) | payer MEDICARE, SELFPAY ==
[2024-11-09 11:02] LABS: MANUAL DIFF FLAG NO
[2024-11-09 11:19] LABS: Basophils Percent Auto 0.6 % (0-2); Eosinophils Percent Auto 0.4 % (0-4); Hematocrit 37.5 % (37.0-47.0); Hemoglobin 12.7 g/dl (12.0-16.0); Imm Gran Abs Auto 0.01 X10*3/uL (0.00-0.03); Imm Gran Pct Auto 0.2 % (0.0-0.4); Lymphocytes Absolute Auto 1.9 X10*3/uL (1.2-4.9); Lymphocytes Percent Auto 38.6 % (20-40); Mean Corpuscular HGB Conc 33.9 g/dl (31.0-35.0); Mean Corpuscular Volume 82.8 fL (80.0-98.0); Mean Platelet Volume 9.8 fL (9.4-12.3); Monocytes Absolute Auto 0.4 X10*3/uL (0.1-1.2); Monocytes Percent Auto 8.9 % (2-11); Neutrophils Absolute Auto 2.5 x10*3/uL (2.0-8.3); Neutrophils Percent Auto 51.3 % (45-73); Platelet Count 241 X10*3/uL (160-400); Red Blood Count 4.53 X10*6/uL (4.20-5.50); Red Cell Distribution Width 14.6 % (11.0-16.0); White Blood Count 4.8 X10*3/uL (4.8-10.8)
[2024-11-09 11:20] LABS: Appearance Urine Clear; Color Urine Yellow; Glucose Urine UA Negative (Negative); Leukocyte Esterase Urine Trace (Negative); Nitrite Urine Negative (Negative); PH 5.5 (5.0-9.0); Specific Gravity - Urine 1.015 (1.005-1.025); UMIC TRIGGER UACC YES; Urine Blood Negative (Negative); Urine Ketones Negative (Negative); Urine Protein Negative (Neg-Trace)
[2024-11-09 11:29] LABS: Bacteria Urine 1+ (None Seen); Hyaline Casts Urine 0-2 /LPF (0-2); RBC Urine 0-2 /HPF (0-2); WBC Urine 0-5 /HPF (0-5)
[2024-11-09 11:43] LABS: Creatinine Urine 207.89 mg/dL; Microalbum/Creatinine Ratio Ur 6.2 ug/mg cr (<30)
[2024-11-09 12:03] LABS: Alanine Aminotransferase 24 U/L (0-31); Albumin Level 4.2 g/dL (3.5-5.0); Alkaline Phosphatase 88 U/L (39-117); Anion Gap 10 (12-20); Aspartate Amino Transferase 27 U/L (5-31); Bilirubin Total 0.4 mg/dL (0.0-1.0); Blood Urea Nitrogen 19 mg/dL (9-16); Calcium 9.5 mg/dL (8.4-10.2); Carbon Dioxide 26 mmol/L (22-29); Chloride 109 mmol/L (96-108); Cholesterol 196 mg/dL (<200); Estimated Glomerular Filt Rate 52; Glucose Fasting 101 mg/dL (60-99); HDL Cholesterol 39 mg/dL (>40); LDL Cholesterol Calculated 130 mg/dL (<100); Potassium 4.2 mmol/L (3.3-5.1); Sodium 141 mmol/L (135-145); TSH reflex Free T4 0.85 uIU/mL (0.32-4.0); Total Protein 7.7 g/dL (6.5-8.0); Triglycerides 137 mg/dL (<150); Vitamin D 25-OH Total 70.9 ng/mL (>30)
== END 2024-11-09 08:58 | disposition home or self-care (01) ==
LOC: HO.WFDLDS 08:57
PROVIDERS: Visit Provider Nurse Practitioner Family
DX: Z00.00 Encounter for general adult medical examination without abnormal findings (principal)
CPT/HCPCS: 36415; 80053; 80061; 81001; 82043; 82306; 82570; 84443; 85025; 96127; 99397

== ENCOUNTER 2024-12-21 14:13 | Outpatient (REF) | payer MEDICARE, SELFPAY ==
[2024-12-21 14:53] LABS: Creatinine, mg/dL 38.33
--- OUTSIDE RECORDS SUMMARY | 2024-12-21 15:05 | XMS_ITS | Clinical Summary ---
Author Organization [facility] Address [address] [place] [address] Care Team Providers Care Machine Clothing Worker Name Role Phone Maeve Savage ERVIN Primary Care Provider [phone] Source Comments PLEASE NOTE, if this patient [...] SAF[place] - [place] Care Teams Machine Clothing Worker Relationship Specialty Start Date End Date Maeve Savage FNP [address] [place] [address] PCP - General 10/11/18
[2024-12-21 15:07] LABS: Creatinine, 24Hr Urine 0.6 G/Day (1.0-2.0); Total Volume 24 Hour Urine 1675 mL
[2024-12-23 19:59] LABS: Calcium, 24 Hr Urine 37 mg/24 h; Calcium/Creatinine Ratio 52 mg/g creat (30-275)
== END 2024-12-21 14:14 | disposition home or self-care (01) ==
LOC: HO.LNP 14:13
PROVIDERS: Visit Provider Internal Medicine Endocrinology, Diabetes & Metabolism
DX: M81.0 Age-related osteoporosis without current pathological fracture (principal)
CPT/HCPCS: 82340; 82570

== ENCOUNTER 2025-01-02 09:20 | Outpatient (AMB) | payer MEDICARE, SELFPAY ==
--- NOTE | 2025-01-02 09:24 | MHC.OFFVIS ---
Vital Signs 01/02/25 09:26 Height 5 ft 2.8 in Weight 157 lb 10.088 oz BMI 28.1 BP 130/68 Blood Pressure Location Rt brachial Position Sitting Pulse 65 Pulse Source Pulse Oximeter Pulse Oximetry (%) 100 Oxygen Delivery Method Room Air Intake Visit Reasons: Osteoporosis Intake Note: Patient present today for Osteoporosis follow up. Inclusion Special Educator Required: No Accompanied by: Self / Same As Patient Allergies No Known Allergies Allergy (Verified 01/02/25 09:27) Medication List - Last Reconciled 01/02/25 by Minor Hardin MD No Known Home Meds HPI Comments Details: 79 YO Female with is seen in consultation at the request of PCP for Osteoporosis. First diagnosed in just diagnosed . Received no treatment in the past No history of pathologic fracture or ONJ. Has several servings of dietary calcium per day in the form of cheese, broccoli , ice cream . Takes Calcium supplement 600 mg daily Takes 800 IU of Vitamin D daily. Denies ever using PPI, anticoagulant, antiepileptic or glucocorticoid medication. Not Does weight bearing exercise Fracture history: No Height loss: ?1 inch DETAILER FURNITURE history: menarche at 17 - menopause age 40s Denies history of Kidney stones: Denies family history of Osteoporosis or hip fracture. UTD on dental cleanings and sees dentist every 6 months. No planned upcoming dental work or extractions. DXA dated :11/19/2023 FINDINGS: LEFT FEMUR, NECK: BMD 0.703 g/cm2, Z-score -1.2, T-score -2.4, osteopenia. LEFT FEMUR, TOTAL: BMD 0.811 g/cm2, Z-score -0.6, T-score -1.6, osteopenia. AP SPINE L1-L3 (excluding L4): The data of L1-L4 has been changed to exclude the L4 vertebral body, because degenerative sclerosis at this level may cause overestimation of lumbar spine density. BMD 0.861 g/cm2, Z-score -1.5, T-score -2.6, osteoporosis. IDENTIFIED RISK FACTORS: Early menopause, secondary osteoporosis. HISTORY OF FRACTURE: None listed. MEDICATIONS: Calcium supplements or multivitamin, vitamin D. MM/XR DEXA axial skeleton IMPRESSION: 1. DIAGNOSIS: Osteoporosis based on the lowest T-score value of -2.6 in the lumbar spine applying World Health Organization criteria. Labs: Workup showed low 24 hour urinary calcium collection suggestive of low calcium intake. Taking Viactiv 650 mg BID The patient is an 79-year-old female presenting with hypocalcuria . Recent assessments have shown that her calcium levels remain below desired thresholds. Despite being on calcium and vitamin D supplementation, recent 24-hour urine collections indicate insufficient calcium levels. The patient is currently taking Viactiv chews and vitamin D to address these deficiencies; however, optimization of dosing and timing has been suggested to potentially improve results. The patient has a history suggestive of osteoporosis, with past bone density examinations highlighting borderline results which necessitate monitoring and intervention. Her dietary intake may be a factor, as she reports a decreased consumption of dairy products over the years. Importantly, the patient has not reported any associated pain or other systemic symptoms. - Viactiv calcium chews, 650 mg, twice daily for hypocalcemia. - Vitamin D, 500 IU, twice daily for vitamin D deficiency. 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 Repeat 24 hour urine for calcium and continues to be low Plan is to increase the calcium supplement to Viactiv 650 mg and vitamin D3 500 IU BID . Will recheck 24 hour urine for calcium and creatinine in about 6 weeks' time. Would hold off on giving pharmacologic treatment until bone density is reassessed when calcium replete. 1. Hypocalciuria Achieving better calcium absorption via an increased intake strategy is paramount. The patient is to take two Viactiv chews at breakfast and one before dinner. Follow-up urine calcium testing in three months is advised to evaluate progress. Monitoring for hypercalcemia will also be a focus. 2. Vitamin D deficiency The patient will continue with the current regimen of vitamin D at 500 IU twice daily to maintain adequate levels that support calcium metabolism. 3. Osteoporosis The aim is to use optimized calcium intake to improve the patient's bone density status. Further bone density evaluations are planned to monitor progress, with adjustments made according to response. I engaged in a detailed discussion with the patient on her current medical situation. We reviewed her diagnosis of hypocalciuria and potential impacts on bone density. The rationale for increasing calcium intake was highlighted, emphasizing the need for optimal absorption daily. I explained the strategy of taking increased doses of Viactiv, and why the suggested changes in dosage and timing might result in improvement. Regarding osteoporosis, we discussed the potential for increased calcium to improve her bone density without pharmacological intervention. We addressed the need for ongoing monitoring, particularly with upcoming bone density assessments. The patient was advised to maintain her current vitamin D supplementation, highlighting its beneficial role in calcium absorption. Future follow-ups, including laboratory evaluations and bone density testing, were planned to ensure her treatment remains effective and to make necessary adjustments. I ensured the patient understood our approach and the anticipated benefits and possible risks of increasing her calcium intake. - Take two Viactiv chews in the morning with breakfast and one chew before dinner daily. - Continue taking vitamin D 500 IU twice daily. - Ensure you complete a 24-hour urine collection for calcium testing approximately two weeks before your next visit. - Return for follow-up appointment in three months. - The patient had an opportunity to ask questions regarding treatment plan. The patient expressed understanding and agreement with the above treatment plan. Patient was informed and verbally consented to the use of an ambient scribe for clinic note documentation during this visit. Orders: Orders Albumin Level 10 Weeks M81.0 - Age-related osteoporosis without current pathological fracture Calcium, 24 Hr Ur 10 Weeks M81.0 - Age-related osteoporosis without current pathological fracture Creatinine, 24 Hr Group 10 Weeks M81.0 - Age-related osteoporosis without current pathological fracture Calcium 10 Weeks M81.0 - Age-related osteoporosis without current pathological fracture Coding Level of Care Code Est Pt Level 3 (60095) Diagnoses Osteoporosis M81.0
[2025-01-02 09:26] VITALS: BP 130/68; PULSE 65; O2SAT 100; BMI 28.1
--- OUTSIDE RECORDS SUMMARY | 2025-01-02 10:06 | XMS_ITS | Clinical Summary ---
Author Organization [facility] Address [address] [place] [address] Care Team Providers Care Supervising Fire Marshal Name Role Phone Maeve Savage ERVIN Primary Care Provider [phone] Source Comments PLEASE NOTE, if this patient [...] [place] Care Teams Supervising Fire Marshal Relationship Specialty Start Date End Date Maeve Savage FNP [address] [place] [address] PCP - General 10/11/18
== END 2025-01-02 09:42 | disposition home or self-care (01) ==
LOC: HO.ENCR 09:20
PROVIDERS: PCP Nurse Practitioner Family; Visit Provider Internal Medicine Endocrinology, Diabetes & Metabolism
DX: M81.0 Age-related osteoporosis without current pathological fracture (principal)
CPT/HCPCS: 99213

== ENCOUNTER → 2025-01-02 09:20 | Outpatient (BNVA) | payer MEDICARE, SELFPAY | PROVIDERS: PCP Nurse Practitioner Family; Visit Provider Internal Medicine Endocrinology, Diabetes & Metabolism | DX: M18.0 Bilateral primary osteoarthritis of first carpometacarpal joints (principal) | CPT/HCPCS: 99212 ==

== ENCOUNTER 2025-01-13 10:05 | Outpatient (REF) | payer MEDICARE, SELFPAY ==
--- OUTSIDE RECORDS SUMMARY | 2025-01-13 10:07 | XMS_ITS | Clinical Summary ---
Author Organization [facility] Address [address] [place] [address] Care Team Providers Care Yarn Conditioner Name Role Phone Maeve Savage ERVIN Primary Care Provider [phone] Source Comments PLEASE NOTE, if this patient [...] SAFETY NET MEDICARE - [place] Care Teams Yarn Conditioner Relationship Specialty Start Date End Date Maeve Savage FNP [address] [place] [address] PCP - General 10/11/18
== END 2025-01-13 10:06 | disposition home or self-care (01) ==
LOC: HO.MAMMO 10:05
PROVIDERS: PCP Nurse Practitioner Family; Visit Provider Nurse Practitioner Family
DX: Z12.31 Encounter for screening mammogram for malignant neoplasm of breast (principal)
CPT/HCPCS: 77063; 77067

== ENCOUNTER → 2025-01-13 10:45 | Outpatient (BNV) | payer MEDICARE, SELFPAY | PROVIDERS: PCP Nurse Practitioner Family; Visit Provider Internal Medicine | DX: Z12.31 Encounter for screening mammogram for malignant neoplasm of breast (principal) | CPT/HCPCS: 77063; 77067 ==

== ENCOUNTER 2025-03-27 09:32 | Outpatient (REF) | payer MEDICARE, SELFPAY ==
[2025-03-27 11:29] LABS: Albumin Level 4.6 g/dL (3.5-5.0); Calcium 9.8 mg/dL (8.4-10.2)
[2025-03-27 11:44] LABS: Creatinine, mg/dL 27.88
[2025-03-27 12:54] LABS: Total Volume 24 Hour Urine 2450 mL
[2025-03-28 18:08] LABS: Calcium/Creatinine Ratio 75 mg/g creat (30-275); Creatinine 24Hr Urine 0.78 g/24 h (0.50-2.15)
== END 2025-03-27 09:33 | disposition home or self-care (01) ==
LOC: HO.10HDL 09:32
PROVIDERS: Visit Provider Internal Medicine Endocrinology, Diabetes & Metabolism
DX: M81.0 Age-related osteoporosis without current pathological fracture (principal)
CPT/HCPCS: 36415; 82040; 82310; 82340; 82570

== ENCOUNTER 2025-04-03 09:17 | Outpatient (AMB) | payer MEDICARE, SELFPAY ==
[2025-04-03 09:24] VITALS: BP 130/72; PULSE 76; O2SAT 98; BMI 27.1
--- NOTE | 2025-04-03 09:24 | MHC.OFFVIS ---
Vital Signs 04/03/25 09:24 Height 5 ft 2.8 in Weight 151 lb 14.376 oz BMI 27.1 BP 130/72 Blood Pressure Location Lt brachial Position Sitting Pulse 76 Pulse Source Pulse Oximeter Pulse Oximetry (%) 98 Oxygen Delivery Method Room Air Intake Visit Reasons: f/u osteoporosis Intake Note: Patient present today for Osteoporosis follow up. 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 First diagnosed in just diagnosed . Received no treatment in the past No history of pathologic fracture or ONJ. Has several servings of dietary calcium per day in the form of cheese, broccoli , ice cream . Takes Calcium supplement 600 mg daily Takes 800 IU of Vitamin D daily. Denies ever using PPI, anticoagulant, antiepileptic or glucocorticoid medication. 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 UTD on dental cleanings and sees dentist every 6 months. No planned upcoming dental work or extractions. DXA dated :11/19/2023 FINDINGS: LEFT FEMUR, NECK: BMD 0.703 g/cm2, Z-score -1.2, T-score -2.4, osteopenia. LEFT FEMUR, TOTAL: BMD 0.811 g/cm2, Z-score -0.6, T-score -1.6, osteopenia. AP SPINE L1-L3 (excluding L4): The data of L1-L4 has been changed to exclude the L4 vertebral body, because degenerative sclerosis at this level may cause overestimation of lumbar spine density. BMD 0.861 g/cm2, Z-score -1.5, T-score -2.6, osteoporosis. IDENTIFIED RISK FACTORS: Early menopause, secondary osteoporosis. HISTORY OF FRACTURE: None listed. MEDICATIONS: Calcium supplements or multivitamin, vitamin D. MM/XR DEXA axial skeleton IMPRESSION: 1. DIAGNOSIS: Osteoporosis based on the lowest T-score value of -2.6 in the lumbar spine applying World Health Organization criteria. Labs: Workup showed low 24 hour urinary calcium collection suggestive of low calcium intake. Taking Viactiv 650 mg BID The patient is an 79-year-old female presenting with osteopenia. She has been taking calcium and vitamin D supplements, which have shown improvement in calcium levels as evidenced by increased urinary calcium excretion. There have been no fractures since the last visit, indicating stability in her condition. The patient engages in regular walking and has been advised to incorporate weight-bearing exercises to further improve bone density. A bone density test is planned for eight months from now to assess the effectiveness of the current management plan. The patient engages in regular walking and has been advised to incorporate weight-bearing exercises, such as light weights, to improve bone density. 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 Repeat 24 hour urine for calcium and is low normal Plan is to continue calcium and vitamin-D supplementation. Would hold off on pharmacologic treatment and recheck DEXA bone density in 8 months to see if bone density improved now with calcium repletion. If continued osteoporosis, may consider treatment with anti resorptive therapy 1. Osteopoooooorosis The patient is currently managing her osteopenia with calcium and vitamin D supplementation, which has resulted in improved calcium levels as indicated by increased urinary calcium excretion. A bone density test is scheduled in eight months to evaluate the effectiveness of the current management strategy. The patient is advised to continue her current regimen and incorporate weight-bearing exercises to enhance bone density. Patient was informed and verbally consented to the use of an ambient scribe for clinic note documentation during this visit. The patient had an opportunity to ask questions regarding treatment plan. The patient expressed understanding and agreement with the above treatment plan. Orders: Orders XR DEXA axial skeleton 8 Months M81.0 - Age-related osteoporosis without current pathological fracture Coding Level of Care Code Est Pt Level 3 (45470) Diagnoses Osteoporosis M81.0
--- OUTSIDE RECORDS SUMMARY | 2025-04-03 10:18 | XMS_ITS | Clinical Summary ---
Author Organization [facility] Address [address] [place] [address] Care Team Providers Care Binder Operator Name Role Phone Maeve Savage ERVIN Primary Care Provider Source Comments PLEASE NOTE, if this patient [...] 60 03/02/2016 3:28 PM EDT Temperature 36.2 C (97.2 F) 03/02/2016 3:28 PM EDT Respiratory Rate 18 03/02/2016 3:28 PM EDT Oxygen Saturation - - Inhaled Oxygen Concentration - - Weight 66.7 kg (147 lb) 03/02/2016 3:28 PM EDT Height 162.6 cm (5' 4 ) 03/02/2016 3:28 PM EDT Body Mass Index 25.23 03/02/2016 3:28 PM EDT Plan of Treatment Not on file Insurance [employer] SAFETY NET MEDICARE - [place] Care Teams Binder Operator Relationship Specialty Start Date End Date Maeve Savage FNP [address] [place] [address] [facility] - General 10/11/18
== END 2025-04-03 09:42 | disposition home or self-care (01) ==
LOC: HO.ENCR 09:18
PROVIDERS: PCP Nurse Practitioner Family; Visit Provider Internal Medicine Endocrinology, Diabetes & Metabolism
DX: M81.0 Age-related osteoporosis without current pathological fracture (principal)
CPT/HCPCS: 99213

== ENCOUNTER → 2025-04-03 09:17 | Outpatient (BNVA) | payer MEDICARE, SELFPAY | PROVIDERS: PCP Nurse Practitioner Family; Visit Provider Internal Medicine Endocrinology, Diabetes & Metabolism | DX: M81.0 Age-related osteoporosis without current pathological fracture (principal) | CPT/HCPCS: 99212 ==

== ENCOUNTER 2025-05-18 13:06 | Outpatient (AMB) | payer MEDICARE, SELFPAY ==
--- NOTE | 2025-05-18 12:24 | A.OFFPC_ITS ---
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 Required: No Is last menstrual period known: No Post menopausal: No Patient : No Allergies No Known Allergies Allergy (Verified 05/18/25 12:24) Tobacco use date assessed: 05/18/25 Fall risk assessment: No Falls in past year Last assessed Fall Risk: 05/18/25 Dental Screening Dental Screen Date: 05/18/25 Did you have a dental visit in the last 12 months?: Yes Did you have a dental problem in the last 6 months where you did not have access to dental care?: No Was dental information given to patient?: Patient has dentist HPI HPI Comments History of Present Illness Details 79-year-old female presents for a tele alth visit for review of recent lab results. She had lab work done in 11/09/2024. She offers no complaints and denies acute symptoms at this time. 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 Minor Joy, Alla Armenta, Bran Kaplan and colleagues, with an educational jose from [employer]. Review of Systems Const Details: Denies chills, Denies fatigue, Denies fever(s), Denies headache(s) and Denies weakness Cardiac Denies chest pain, Denies claudication, Denies leg edema, Denies lightheadedness, Denies palpitations, Denies dyspnea, Denies dyspnea on exertion, Denies orthopnea and Denies other (Loss of consciousness) Resp Denies cough, Denies excessive phlegm production, Denies dyspnea, Denies dyspnea on exertion, Denies snoring and Denies wheezing Physical exam (Primary Care) Tobacco/Smoking Status: Tobacco use Status Tobacco use date assessed 05/18/25 05/18/25 12:26 Patient Tobacco Use Status Never used Tobacco 05/18/25 12:26 e-Cigarette/Vaping Use Never Used 05/18/25 12:26 Thrive Assessment: Date of Thrive Assessment Date Thrive assessed 11/09/24 05/18/25 12:26 Const Other: Patient is alert oriented x3 Telehealth Telehealth Telehealth Platform: Telephone Location of provider rendering services: practice address Location of patient: address on file Patient Identification confirmed using: Name, : Yes Telehealth method: voice only Patient verbally consented to treatment: Yes Patient verbally consented to billing insurance company: Yes Patient informed of any privacy concerns related to visit: Yes Coding Level of Care Code Tele Est Pt Level 3 (11942) Diagnoses Hypercholesteremia E78.00 Elevated fasting glucose R73.01 Time Spent (min) 10 Assessment & Plan Assessment & Plan (1) Hypercholesteremia: Code(s): E78.00 - Pure hypercholesterolemia, unspecified Category: Medical Plan: Recent LDL level is slightly elevated, 130, HDL level is slightly low, 39. Advised to limit foods high in saturated fat and avoid foods high in trans fat. Routine exercise encouraged. Fast for 10-12 hours, may drink water, and perform lipid panel blood work a few days before next visit. Follow-up for telehealth visit in 2 months. Return sooner with symptoms or concerns. Verbalized understanding and agreed with the plan. (2) Elevated fasting glucose: Code(s): R73.01 - Impaired fasting glucose Category: Medical Plan: Recent fasting glucose is slightly elevated, 101. Healthy diet and routine exercise encouraged. Will recheck fasting glucose and make changes as needed. Verbalized understanding and agreed with the plan. Orders: Orders Glucose Fasting 2 Months R73.01 - Impaired fasting glucose Lipid Panel 2 Months E78.00 - Pure hypercholesterolemia, unspecified
--- OUTSIDE RECORDS SUMMARY | 2025-05-18 13:27 | XMS_ITS | Clinical Summary ---
Author Organization [facility] Address [address] [place] [address] Care Team Providers Care Assistant Business Manager Name Role Phone Maeve Savage ERVIN Primary Care Provider [phone] Source Comments PLEASE NOTE, if this patient [...] SAFETY [place] MEDICARE - [place] Care Teams Assistant Business Manager Relationship Specialty Start Date End Date Maeve Savage FNP [address] [place] [address] [facility] - General 10/11/18
== END 2025-05-18 13:33 | disposition home or self-care (01) ==
LOC: HO.HMCFM 13:06
PROVIDERS: PCP Nurse Practitioner Family; Visit Provider Nurse Practitioner Family
DX: E78.00 Pure hypercholesterolemia, unspecified (principal); R73.01 Impaired fasting glucose

== ENCOUNTER 2025-07-27 09:48 | Outpatient (AMB) | payer MEDICARE, SELFPAY ==
--- NOTE | 2025-07-27 09:53 | MHC.PC.OV ---
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 Is last menstrual period known: No Post menopausal: No Patient : No Allergies No Known Allergies Allergy (Verified 07/27/25 10:13) Medication List - Last Reconciled 07/27/25 by Vannessa Tao CNP No Known Home Meds Tobacco use date assessed: 07/27/25 Fall risk assessment: No Falls in past year Last assessed Fall Risk: 07/27/25 Dental Screening Dental Screen Date: 07/27/25 Did you have a dental visit in the last 12 months?: Yes Did you have a dental problem in the last 6 months where you did not have access to dental care?: No Was dental information given to patient?: Patient has dentist HPI HPI Comments History of Present Illness Details 79-year-old female presents for hypercholesterolemia and elevated fasting glucose follow-up. She admits to making healthy lifestyle choices. She offers no complaints and denies acute symptoms at this time. She did not perform blood work for this visit as planned. 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 1. Little interest or pleasure in doing things: not at all 2. Feeling down, depressed, or hopeless: not at all 3. Trouble falling or staying asleep, or sleeping too much: not at all 4. Feeling tired or having little energy: not at all 5. Poor appetite or overeating: not at all 6. Feeling bad about yourself - or that you are a failure or have let yourself or your family down: not at all 7. Trouble concentrating on things, such as reading the newspaper or watching television: not at all 8. Moving or speaking so slowly that other people could have noticed. Or the opposite - being so fidgety or restless that you have been moving around a lot more than usual: not at all 9. Thoughts that you would be better off or of hurting yourself in some way: not at all Total score: 0 Depression Screening Interpretation: Negative Depression Screening Done: Yes Source: Developed by Drs. Minor Joy, Alla Armenta, Bran Kaplan and colleagues, with an educational jose from [employer]. Thrive Questionnaire Date Thrive assessed: 11/09/24 I am a: Patient What is your living situation today?: I have a steady place to live Within the past 12 months, did the food you bought not last and you didn't have the money to get more?: Sometimes True Within the past 12 months, did you worry whether your food would run out before you got money to buy more?: Often true Do you have trouble paying for medicines?: No Do you have trouble getting transportation to medical appointments?: No Do you have trouble paying your heating and electricity bill?: No Do you have trouble taking care of your child, family member or friend?: No Do you have trouble with day-to-day activities such as bathing, preparing meals, shopping, managing finances, etc.?: No Are you currently unemployed and looking for a job?: Yes Are you interested in more education?: Yes Please select the resources that you would like help with: None THRIVE Score: 2 JACKIE-7 AMB Questionnaire JACKIE-7 Date JACKIE - 7 assessed: 11/09/24 Source: Developed by Drs. Minor Joy, Bran Wylie and colleagues, with an educational jose from [employer]. Review of Systems Const Details: Const Denies chills, Denies fatigue, Denies fever(s), Denies headache(s) and Denies weakness ENT Denies dizziness and Denies headache(s) Card Denies chest pain, Denies lightheadedness, Denies dyspnea and Denies other (Palpitations) Resp Denies cough, Denies dyspnea, Denies wheezing and Denies other ( shortness of breath) GI Denies abdominal pain, Denies melena, Denies hematochezia, Denies change in bowel habits, Denies dyspepsia and Denies nausea Denies hematuria and Denies dysuria Musc Denies abnormal gait, Denies myalgias, Denies arthralgias, Denies numbness and Denies tingling Skin/Breast Denies rash, Denies unusual bruising and Denies wounds Neuro Denies abnormal gait, Denies dizziness, Denies headache(s), Denies memory loss, Denies numbness, Denies Sensory deficit (Neuro), Denies tingling and Denies weakness Psych Denies anxiety, Denies depression, Denies memory loss Endo Denies cold intolerance, Denies fatigue, Denies heat intolerance, Denies polydipsia and Denies polyuria Aller/Immun Denies wheezing Physical exam (Primary Care) Vital Signs: Last Vital Signs Temp 97.6 F 07/27/25 10:01 Pulse 103 H 07/27/25 10:01 Resp 16 07/27/25 10:01 BP 147/80 H 07/27/25 10:01 Pulse Ox 98 07/27/25 10:01 Oxygen Delivery Method Room Air 07/27/25 10:01 BMI result Body Mass Index 28.0 Tobacco/Smoking Status: Tobacco use Status Tobacco use date assessed 07/27/25 07/27/25 10:05 Patient Tobacco Use Status Never used Tobacco 07/27/25 09:54 e-Cigarette/Vaping Use Never Used 07/27/25 09:54 PHQ-9: PHQ-9 Score PHQ-9: Total score 0 07/27/25 09:54 Depression Screening Interpretation: Negative Thrive Assessment: Date of Thrive Assessment Date Thrive assessed 11/09/24 07/27/25 09:54 Const Other: General: no acute distress and well developed Nutritional Appearance: well nourished Orientation/consciousness: patient oriented x3 HENMT Head: Yes normocephalic and Yes atraumatic Eyes General: appearance normal, both eyes and all related structures Pupils: Equal, round and reactive pupils present EOM: EOMs intact bilaterally Resp Effort & Inspection: normal respiratory effort Auscultation: clear to auscultation bilaterally Cardio Rate: regular rate Rhythm: regular rhythm Heart sounds: S1 normal heart sound present, S2 normal heart sound present, no gallops, no murmurs and no rubs Extrem General: Yes normal to inspection, No edema and No calf tenderness Skin General: warm and dry. Normal skin color. Normal skin turgor Neuro General: patient oriented x3, gait normal and no focal neuro deficit Cranial nerves: Yes Equal, round and reactive pupils present Cognition (Neuro): normal cognition Gait exam (Neuro): Normal gait present Sensory Exam: No Sensory deficit (Neuro) Psych Appearance: grossly normal Affect: normal affect Attitude: cooperative Thought process: Normal thought process present Coding Level of Care Code Est Pt Level 3 (32834) Diagnoses Hypercholesteremia E78.00 Elevated fasting glucose R73.01 Assessment & Plan Assessment & Plan (1) Hypercholesteremia: Code(s): E78.00 - Pure hypercholesterolemia, unspecified Category: Medical Plan: She did not perform blood work for this visit as planned. She has been fasting for at least 10 hours and will perform lipid panel and glucose blood work after this visit. Will review results and make changes as needed. Follow-up in 2 months for transfer of care with a new provider within the practice. Return sooner with symptoms or concerns. Verbalized understanding and agreed with the plan. (2) Elevated fasting glucose: Code(s): R73.01 - Impaired fasting glucose Category: Medical Plan: Plan as above.
[2025-07-27 10:01] VITALS: BP 147/80; PULSE 103; RESP 16; TEMP 36.4; O2SAT 98; BMI 28.0
[2025-07-27 10:20] VITALS: BP 138/86
== END 2025-07-27 10:26 | disposition home or self-care (01) ==
LOC: HO.HMCFM 09:48
PROVIDERS: PCP Nurse Practitioner Family; Visit Provider Nurse Practitioner Family
DX: E78.00 Pure hypercholesterolemia, unspecified (principal); R73.01 Impaired fasting glucose

== ENCOUNTER 2025-07-27 09:48 | Outpatient (REF) | payer MEDICARE, SELFPAY ==
[2025-07-27 15:39] LABS: Cholesterol 216 mg/dL (<200); HDL Cholesterol 40 mg/dL (>40); Triglycerides 156 mg/dL (<150)
== END 2025-07-27 09:49 | disposition home or self-care (01) ==
LOC: HO.WFDLDS 09:48
PROVIDERS: PCP Nurse Practitioner Family; Visit Provider Nurse Practitioner Family
DX: R73.01 Impaired fasting glucose (principal); E78.00 Pure hypercholesterolemia, unspecified
CPT/HCPCS: 36415; 80061; 82947; 99212